=== PATIENT | female | born 1990 | race Two or more races ===

== ENCOUNTER 2019-06-08 16:24 | Outpatient (CLI) | payer MEDICAID | END 2019-06-08 23:59 | disposition critical access hospital (66) | LOC: EMS 16:24 | PROVIDERS: ATTEND Surgery | DX: R56.9 Unspecified convulsions (principal) | CPT/HCPCS: A0425; A0429; A0999 ==

== ENCOUNTER 2019-06-08 16:35 | Emergency (ER) | payer MEDICAID ==
[2019-06-08] MEDS ORDERED: LORazepam 1 MG TABLET PO STA (16:47)
--- NOTE | 2019-06-08 16:49 | ED Physician Documentation ---
PD HPI SEIZURE - Stated complaint Stated Complaint: SZ - History obtained from History obtained from: Patient - History of Present Illness Timing - onset: Today (29-year-old woman with epilepsy. I actually wonder if she might have pseudoseizures based on her description. That said she is prescribed lorazepam by her neurologist and is visiting locally. She says she does not have any because all of the local pharmacies are out because of patients getting a month supply of her medications due to coronavirus. She had increased seizure activity today which is described as bilateral arm shaking without loss of consciousness. 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 She is given 1 here and a prescription for a few. Departure - Departure Disposition: 01 Home, Self Care Clinical Impression: Seizure Condition: Good Record reviewed to determine appropriate education?: Yes Instructions: ED Seizure Recurrent Prescriptions: LORazepam [Ativan] 1 mg PO BID PRN #7 tablet PRN Reason: Anxiety Comments: Follow-up with your neurologist as soon as possible, no driving, return if worse.
[2019-06-08 17:04] VITALS: BP 125/82
== END 2019-06-08 17:07 | disposition home or self-care (01) ==
LOC: ED 16:35
DX: R56.9 Unspecified convulsions (principal)
CPT/HCPCS: 99283; 99284; J8499